=== PATIENT | male | born 1980 | race American Indian/Alaskan Native ===

== ENCOUNTER 2024-10-02 16:46 | Inpatient (IN) | payer MEDICAID, OTHER ==
[2024-10-02 17:09] LABS: BASOPHILS PERCENT AUTO 2.4 % (0.0-1.0); EOSINOPHILS PERCENT AUTO 4.7 % (1.0-3.0); LYMPHOCYTES PERCENT AUTO 31.1 % (20.5-50.1); MONOCYTES PERCENT AUTO 16.6 % (2-8); NEUTROPHILS PERCENT AUTO 45.2 % (42.2-75.2); PLATELET COUNT,PLT 150 10^3/uL (150-450); RED BLOOD CELL COUNT 3.63 10^6/uL (4.6-6.2); WHITE BLOOD CELL COUNT,WBC 3.4 10^3/uL (5.0-10.0)
[2024-10-02] MEDS: MVI, Adult with Vitamin K 10 ML, Folic Acid 1 MG, Thiamine 100 MG in Lactated Ringers 1... IV ONE (17:09)
[2024-10-02 17:12] LABS: AMPHETAMINES,URINE NEGATIVE (NEGATIVE); BARBITURATES,URINE NEGATIVE (NEGATIVE); MDMA (ECSTASY), URINE NEGATIVE (NEGATIVE); METHAMPHETAMINES,URINE NEGATIVE (NEGATIVE); OPIATES,URINE NEGATIVE (NEGATIVE); OXYCODONE,URINE NEGATIVE (NEGATIVE); PHENCYCLIDINE,URINE NEGATIVE (NEGATIVE); TCA,URINE NEGATIVE (NEGATIVE)
[2024-10-02 17:23] LABS: INR 1.1 (0.9-1.2)
[2024-10-02 17:27] LABS: A/G RATIO 0.55; ALANINE AMINOTRANSFERASE,ALT 38.0 U/L (16-63); ASPARTATE AMNIOTRANSFERASE,AST 94.0 U/L (15-37); BILIRUBIN TOTAL 5.6 mg/dL (0.2-1.0); BLOOD UREA NITROGEN,BUN 7.0 mg/dL (7-18); CARBON DIOXIDE,CO2 27.0 mmol/L (21-32); CHLORIDE,CL 109.0 mmol/L (98-107); CREATININE 0.64 mg/dL (0.70-1.30); EST CRCL DRUG DOSING (CG) 163.35 mL/min; ETHANOL BLOOD MEDICAL 157.0 mg/dL (0); GLUCOSE RANDOM 104.0 mg/dL (70-99); POTASSIUM,K 2.9 mmol/L (3.5-5.1); PROTEIN TOTAL,TP 6.5 g/dL (6.4-8.2); SODIUM,NA 144.0 mmol/L (136-145)
[2024-10-02 17:38] LABS: ESTIMATED GFR 120.0 mL/min (>=60)
[2024-10-02] MEDS ORDERED: D5 1/2 NS w/ 40 mEq/L KCl 1,000 ML IV SCH (19:00)
[2024-10-02] MEDS ORDERED: Ondansetron 4 MG/2 ML SDV IVPUSH PRN (19:47)
[2024-10-02] MEDS ORDERED: LORazepam 2 MG/ML SDV IVPUSH PRN (19:55)
[2024-10-02] MEDS ORDERED: 50% Dextrose in Water 50 ML Syringe IVPUSH PRN (19:57)
[2024-10-02] MEDS ORDERED: D5 1/2 NS w/ 20 mEq/L KCl 1,000 ML IV SCH (20:00)
[2024-10-02] MEDS: NS with KCl 40mEq 1,000 ML IV ONE (20:07)
[2024-10-02] MEDS: Magnesium Sulf/Wat 4 GM/50 mL 4 GM in Premix Bag 1 BAG IV ONE (20:24)
[2024-10-02] MEDS: Potassium Chloride 20 MEQ in Premix Bag 1 BAG IV SCH (20:29)
[2024-10-02] MEDS: Metoprolol Tartrate 5 MG/5 ML SDV IVPUSH SCH (20:46)
[2024-10-02 20:47] LABS: IRON,FE 99.0 ug/dL (65-175); PERCENT FE SATURATION 44.0 % (20.0-50.0)
[2024-10-02] MEDS: Insulin Glarg,Human.Rec.Analog 100 Unit/ML 10 ML Vial SUBCUT SCH (20:54)
[2024-10-02] MEDS: Heparin Sodium 5,000 Units/ML Vial SUBCUT SCH (21:00)
[2024-10-02 21:19] LABS: FOLIC ACID 15.2 ng/mL (8.6-58.9); GAMMA GLUTAMYL TRANSFERASE,GGT 575.0 U/L (15-85)
[2024-10-02] MEDS: Potassium Chloride 10 MEQ Tab.ER PO SCH (23:06)
[2024-10-02] MEDS: Ketorolac 30 MG/ML SDV IVPUSH STA (23:33)
[2024-10-03 06:11] LABS: BASOPHILS PERCENT AUTO 1.0 % (0.0-1.0); EOSINOPHILS PERCENT AUTO 6.7 % (1.0-3.0); LYMPHOCYTES PERCENT AUTO 32.6 % (20.5-50.1); MONOCYTES PERCENT AUTO 16.6 % (2-8); NEUTROPHILS PERCENT AUTO 43.1 % (42.2-75.2); PLATELET COUNT,PLT 92 10^3/uL (150-450); RED BLOOD CELL COUNT 3.13 10^6/uL (4.6-6.2); WHITE BLOOD CELL COUNT,WBC 1.9 10^3/uL (5.0-10.0)
[2024-10-03 06:33] LABS: A/G RATIO 0.46; ALANINE AMINOTRANSFERASE,ALT 32.0 U/L (16-63); ASPARTATE AMNIOTRANSFERASE,AST 76.0 U/L (15-37); BILIRUBIN DIRECT 3.8 mg/dL (0.0-0.2); BILIRUBIN INDIRECT 0.7; BILIRUBIN TOTAL 4.5 mg/dL (0.2-1.0); BLOOD UREA NITROGEN,BUN 6.0 mg/dL (7-18); CARBON DIOXIDE,CO2 25.0 mmol/L (21-32); CHLORIDE,CL 109.0 mmol/L (98-107); CREATININE 0.64 mg/dL (0.70-1.30); EST CRCL DRUG DOSING (CG) 153.67 mL/min; GLUCOSE RANDOM 145.0 mg/dL (70-99); PHOSPHORUS 3.4 mg/dL (2.6-4.7); POTASSIUM,K 3.1 mmol/L (3.5-5.1); PROTEIN TOTAL,TP 5.4 g/dL (6.4-8.2); SODIUM,NA 142.0 mmol/L (136-145)
[2024-10-03 06:34] LABS: INR 1.1 (0.9-1.2)
[2024-10-03 06:35] LABS: ESTIMATED GFR 120.0 mL/min (>=60)
[2024-10-03] MEDS ORDERED: Potassium Chloride 10 MEQ Tab.ER PO SCH (08:00)
[2024-10-03] MEDS: Lactulose Soln 10 GM/15 ML 30 ML UD Cup PO SCH (15:13)
[2024-10-04 06:10] LABS: BASOPHILS PERCENT AUTO 1.0 % (0.0-1.0); EOSINOPHILS PERCENT AUTO 8.3 % (1.0-3.0); LYMPHOCYTES PERCENT AUTO 24.7 % (20.5-50.1); MONOCYTES PERCENT AUTO 15.3 % (2-8); NEUTROPHILS PERCENT AUTO 50.7 % (42.2-75.2); PLATELET COUNT,PLT 119 10^3/uL (150-450); RED BLOOD CELL COUNT 3.50 10^6/uL (4.6-6.2); WHITE BLOOD CELL COUNT,WBC 3.0 10^3/uL (5.0-10.0)
[2024-10-04 06:26] LABS: BLOOD UREA NITROGEN,BUN 3.0 mg/dL (7-18); CARBON DIOXIDE,CO2 25.0 mmol/L (21-32); GLUCOSE RANDOM 92.0 mg/dL (70-99)
[2024-10-04 06:47] LABS: CHLORIDE,CL 103.0 mmol/L (98-107); CREATININE 0.29 mg/dL (0.70-1.30); EST CRCL DRUG DOSING (CG) 339.13 mL/min; POTASSIUM,K 3.2 mmol/L (3.5-5.1); SODIUM,NA 145.0 mmol/L (136-145)
[2024-10-04 06:48] LABS: ESTIMATED GFR 153.0 mL/min (>=60)
[2024-10-04 08:38] LABS: ALANINE AMINOTRANSFERASE,ALT 36.0 U/L (16-63); ASPARTATE AMNIOTRANSFERASE,AST 100.0 U/L (15-37); BILIRUBIN DIRECT 4.5 mg/dL (0.0-0.2); BILIRUBIN INDIRECT 0.9; BILIRUBIN TOTAL 5.4 mg/dL (0.2-1.0); PROTEIN TOTAL,TP 5.8 g/dL (6.4-8.2)
[2024-10-04 08:51] LABS: A/G RATIO 0.49
[2024-10-04] MEDS: Magnesium Sulf/Wat 4 GM/50 mL 4 GM in Premix Bag 1 BAG IV ONE (09:47)
[2024-10-04] MEDS: Potassium Chloride 20 MEQ in Premix Bag 1 BAG IV SCH (13:19)
[2024-10-04] MEDS: Ketorolac 30 MG/ML SDV IVPUSH ONE (14:52)
[2024-10-04] MEDS: cloNIDine 0.1 MG/Day Transdermal Patch TRDERM SCH (17:38)
[2024-10-05 06:12] LABS: BASOPHILS PERCENT AUTO 1.2 % (0.0-1.0); EOSINOPHILS PERCENT AUTO 6.2 % (1.0-3.0); LYMPHOCYTES PERCENT AUTO 23.1 % (20.5-50.1); MONOCYTES PERCENT AUTO 13.6 % (2-8); NEUTROPHILS PERCENT AUTO 55.9 % (42.2-75.2); PLATELET COUNT,PLT 134 10^3/uL (150-450); RED BLOOD CELL COUNT 3.79 10^6/uL (4.6-6.2); WHITE BLOOD CELL COUNT,WBC 3.2 10^3/uL (5.0-10.0)
[2024-10-05 06:29] LABS: BLOOD UREA NITROGEN,BUN 4.0 mg/dL (7-18); CARBON DIOXIDE,CO2 25.0 mmol/L (21-32); CHLORIDE,CL 106.0 mmol/L (98-107); GLUCOSE RANDOM 110.0 mg/dL (70-99); POTASSIUM,K 4.0 mmol/L (3.5-5.1); SODIUM,NA 134.0 mmol/L (136-145)
[2024-10-05 06:45] LABS: CREATININE 0.34 mg/dL (0.70-1.30); EST CRCL DRUG DOSING (CG) 289.26 mL/min
[2024-10-05 06:46] LABS: ESTIMATED GFR 146.0 mL/min (>=60)
[2024-10-05] MEDS: Ketorolac 30 MG/ML SDV IVPUSH ONE ×2 (08:31→14:37)
[2024-10-05] MEDS: Thiamine 200 MG/2 ML MDV IVPUSH SCH (11:47)
[2024-10-05] MEDS: Furosemide 100 MG/10 ML SDV IVPUSH ONE (20:05)
[2024-10-06 06:18] LABS: BASOPHILS PERCENT AUTO 0.7 % (0.0-1.0); EOSINOPHILS PERCENT AUTO 4.9 % (1.0-3.0); LYMPHOCYTES PERCENT AUTO 18.4 % (20.5-50.1); MONOCYTES PERCENT AUTO 13.1 % (2-8); NEUTROPHILS PERCENT AUTO 62.9 % (42.2-75.2); PLATELET COUNT,PLT 155 10^3/uL (150-450); RED BLOOD CELL COUNT 3.71 10^6/uL (4.6-6.2); WHITE BLOOD CELL COUNT,WBC 4.5 10^3/uL (5.0-10.0)
[2024-10-06 06:35] LABS: BLOOD UREA NITROGEN,BUN 9.0 mg/dL (7-18); CARBON DIOXIDE,CO2 25.0 mmol/L (21-32); CHLORIDE,CL 108.0 mmol/L (98-107); CREATININE 0.76 mg/dL (0.70-1.30); EST CRCL DRUG DOSING (CG) 129.4 mL/min; GLUCOSE RANDOM 157.0 mg/dL (70-99); POTASSIUM,K 4.1 mmol/L (3.5-5.1); SODIUM,NA 139.0 mmol/L (136-145)
[2024-10-06 06:50] LABS: ESTIMATED GFR 114.0 mL/min (>=60)
[2024-10-06 08:25] LABS: ALANINE AMINOTRANSFERASE,ALT 29.0 U/L (16-63); ASPARTATE AMNIOTRANSFERASE,AST 52.0 U/L (15-37); BILIRUBIN DIRECT 4.0 mg/dL (0.0-0.2); BILIRUBIN INDIRECT 0.3; BILIRUBIN TOTAL 4.3 mg/dL (0.2-1.0); PROTEIN TOTAL,TP 6.0 g/dL (6.4-8.2); T4 FREE 1.27 ng/dL (0.76-1.46); TSH ULTRASENSITIVE 0.55 uIU/mL (0.36-3.74)
[2024-10-06 08:27] LABS: A/G RATIO 0.54
[2024-10-06] MEDS: Magnesium Sulfate (4.06 MEQ/ML) 1 GM/2 ML SDV IM ONE (08:41)
[2024-10-06] MEDS: Magnesium Sulfate 2 GM/50 mL 2 GM in Premix Bag 1 BAG IV ONE (09:36)
[2024-10-06] MEDS: Magnesium Sulfat/D5W 1GM/100ML 100 ML ONE (15:01)
[2024-10-07] MEDS: LORazepam 2 MG/ML SDV IVPUSH STA (00:12)
[2024-10-07] MEDS: LORazepam 2 MG/ML SDV IVPUSH ONE (00:13)
[2024-10-07 06:41] LABS: BASOPHILS PERCENT AUTO 0.4 % (0.0-1.0); EOSINOPHILS PERCENT AUTO 5.0 % (1.0-3.0); LYMPHOCYTES PERCENT AUTO 27.4 % (20.5-50.1); MONOCYTES PERCENT AUTO 13.2 % (2-8); NEUTROPHILS PERCENT AUTO 54.0 % (42.2-75.2); PLATELET COUNT,PLT 174 10^3/uL (150-450); RED BLOOD CELL COUNT 3.95 10^6/uL (4.6-6.2); WHITE BLOOD CELL COUNT,WBC 4.6 10^3/uL (5.0-10.0)
[2024-10-07 06:56] LABS: BLOOD UREA NITROGEN,BUN 13.0 mg/dL (7-18); CARBON DIOXIDE,CO2 23.0 mmol/L (21-32); CHLORIDE,CL 108.0 mmol/L (98-107); CREATININE 0.73 mg/dL (0.70-1.30); EST CRCL DRUG DOSING (CG) 134.72 mL/min; GLUCOSE RANDOM 100.0 mg/dL (70-99); POTASSIUM,K 4.3 mmol/L (3.5-5.1); SODIUM,NA 140.0 mmol/L (136-145)
[2024-10-07 06:57] LABS: ESTIMATED GFR 116.0 mL/min (>=60)
[2024-10-07] MEDS: Ketorolac 30 MG/ML SDV IVPUSH ONE (10:51)
[2024-10-07 12:46] LABS: IONIZED CA@PH7.4 1.15 mmol/L (1.09-1.30); IONIZED CALCIUM 1.13 mmol/L (1.09-1.30)
[2024-10-07 16:47] LABS: HAV AB IGM Negative (Negative); HBC IGM Negative (Negative); HEP B SURG AG Negative (Negative); HEP C AB BY CIA High Pos (Negative); HEP C AB BY CIA INDEX >11.00 IV
[2024-10-08 11:38] VITALS: BP 112/77
[2024-10-08 16:34] VITALS: PULSE 93
[2024-10-08] MEDS: Ketorolac 30 MG/ML SDV IVPUSH ONE (19:40)
[2024-10-08 22:42] LABS: HEP C QNT BY NAAT (IU/mL) Not Detected; HEP C QNT BY NAAT (log IU/mL) Not Detected log IU/mL; HEP C QNT BY NAAT INTERP Not Detected (Not Detected)
[2024-10-12] MEDS ORDERED: Remove Patch CLONIDINE TRDERM SCH (17:00)
== END 2024-10-09 05:54 | DRG 896 ==
LOC: DL.ED 16:46 → DL.MS 19:29
PROVIDERS: ADMIT Internal Medicine; ATTEND Internal Medicine
PROC: HZ2ZZZZ Detoxification Services for Substance Abuse Treatment (ICD-10-PCS; principal; 2024-10-02)
DX: F10.239 Alcohol dependence with withdrawal, unspecified (principal); J69.0 Pneumonitis due to inhalation of food and vomit; E44.0 Moderate protein-calorie malnutrition; E87.6 Hypokalemia; E11.9 Type 2 diabetes mellitus without complications; E86.0 Dehydration; F17.200 Nicotine dependence, unspecified, uncomplicated; E11.65 Type 2 diabetes mellitus with hyperglycemia; D64.9 Anemia, unspecified; E83.51 Hypocalcemia; E83.42 Hypomagnesemia; K74.60 Unspecified cirrhosis of liver; F15.10 Other stimulant abuse, uncomplicated; Z68.28 Body mass index [BMI] 28.0-28.9, adult; Z88.0 Allergy status to penicillin
CPT/HCPCS: 36415; 70450; 71045; 73562-LT; 80048; 80053; 80074; 80076; 80305-QW; 80307; 82140; 82330; 82607; 82746; 82947; 82977; 83036; 83540; 83550; 83735; 83880; 84100; 84425; 84439; 84443; 85025; 85610; 86592; 87522; 96365; 99223; 99232; 99233; 99239; 99285; 99285-25; A9270-GY; J0612; J0696; J1644; J1808; J1815-GY; J1885; J1938; J2470; J3360; J3411; J3475; J3480; J3486; J3490; J7120; S5010

== ENCOUNTER 2025-01-09 14:26 | Emergency (ER) | payer MEDICAID, OTHER ==
[2025-01-09 15:42] VITALS: BP 130/86; PULSE 86
== END 2025-01-09 15:37 | disposition home or self-care (01) ==
LOC: DL.ED 14:26
DX: S83.92XA Sprain of unspecified site of left knee, initial encounter (principal); I10 Essential (primary) hypertension; Z88.0 Allergy status to penicillin; Z79.899 Other long term (current) drug therapy; X58.XXXA Exposure to other specified factors, initial encounter; Y93.89 Activity, other specified
CPT/HCPCS: 73562; 99283; A9270

== ENCOUNTER 2025-02-02 19:55 | Emergency (ER) | payer MEDICAID ==
[2025-02-02] MEDS: MVI, Adult with Vitamin K 10 ML, Folic Acid 1 MG, Thiamine 100 MG in Lactated Ringers 1... IV ONE (20:28)
[2025-02-02 20:31] LABS: BASOPHILS PERCENT AUTO 0.7 % (0.0-1.0); EOSINOPHILS PERCENT AUTO 1.9 % (1.0-3.0); LYMPHOCYTES PERCENT AUTO 39.6 % (20.5-50.1); MONOCYTES PERCENT AUTO 15.9 % (2-8); NEUTROPHILS PERCENT AUTO 41.9 % (42.2-75.2); PLATELET COUNT,PLT 105 10^3/uL (150-450); RED BLOOD CELL COUNT 4.38 10^6/uL (4.6-6.2); WHITE BLOOD CELL COUNT,WBC 4.3 10^3/uL (5.0-10.0)
[2025-02-02 20:50] LABS: INR 1.1 (0.9-1.2)
[2025-02-02 20:51] LABS: D-DIMER QUANTITATIVE 405.0 ng/mL (0-400)
[2025-02-02 20:54] LABS: ALANINE AMINOTRANSFERASE,ALT 29.0 U/L (16-63); ASPARTATE AMNIOTRANSFERASE,AST 40.0 U/L (15-37); BILIRUBIN TOTAL 2.1 mg/dL (0.2-1.0); BLOOD UREA NITROGEN,BUN 7.0 mg/dL (7-18); CARBON DIOXIDE,CO2 23.0 mmol/L (21-32); CHLORIDE,CL 109.0 mmol/L (98-107); CREATININE 1.12 mg/dL (0.70-1.30); EST CRCL DRUG DOSING (CG) 90.58 mL/min; ETHANOL BLOOD MEDICAL 299.0 mg/dL (0); POTASSIUM,K 2.9 mmol/L (3.5-5.1); PROTEIN TOTAL,TP 7.0 g/dL (6.4-8.2); SODIUM,NA 144.0 mmol/L (136-145)
[2025-02-02 21:00] LABS: LACTIC ACID 3.8 mmol/L (0.4-2.0)
[2025-02-02 21:05] LABS: GLUCOSE RANDOM 139.0 mg/dL (70-99)
[2025-02-02 21:07] LABS: A/G RATIO 0.71; ESTIMATED GFR 84.0 mL/min (>=60)
[2025-02-02] MEDS: Potassium Chloride 10 MEQ Tab.ER PO ONE (21:23)
[2025-02-02 23:15] VITALS: BP 98/77; PULSE 93
[2025-02-02 23:19] LABS: APPEARANCE,URINE CLEAR (CLEAR); GLUCOSE,URINE NEGATIVE (NEGATIVE); OCCULT BLOOD,URINE NEGATIVE (NEGATIVE)
[2025-02-02 23:24] LABS: AMPHETAMINES,URINE NEGATIVE (NEGATIVE); BARBITURATES,URINE NEGATIVE (NEGATIVE); MDMA (ECSTASY), URINE NEGATIVE (NEGATIVE); METHAMPHETAMINES,URINE NEGATIVE (NEGATIVE); OPIATES,URINE NEGATIVE (NEGATIVE); OXYCODONE,URINE NEGATIVE (NEGATIVE); PHENCYCLIDINE,URINE NEGATIVE (NEGATIVE); TCA,URINE NEGATIVE (NEGATIVE)
[2025-02-02 23:31] LABS: EPITHELIAL CELLS,URINE FEW /HPF (NOT SEEN)
== END 2025-02-03 01:34 | disposition home or self-care (01) ==
LOC: DL.ED 19:55
DX: R10.32 Left lower quadrant pain (principal); F10.220 Alcohol dependence with intoxication, uncomplicated; I82.622 Acute embolism and thrombosis of deep veins of left upper extremity; I10 Essential (primary) hypertension; E11.9 Type 2 diabetes mellitus without complications; Z88.0 Allergy status to penicillin; Z72.0 Tobacco use; Y90.8 Blood alcohol level of 240 mg/100 ml or more
CPT/HCPCS: 36415; 80053; 80305; 80307; 81001; 83605; 83690; 83735; 84484; 85025; 85379; 85610; 96365; 96375; 99284; A9270; J1808; J2270; J3411; J7120; J3490